=== PATIENT | female | born 1950 | race Caucasian/White ===

== ENCOUNTER 2020-09-27 11:38 | Emergency (ER) | payer OTHER ==
[~2020-09-27] VITALS: Ht 162.6 cm; Wt 65.8 kg
[~2020-09-27 11:38] MED LIST: CATAFLAM50 MG PO; MOTRIN800 MG PO; TUSSIONEX PENNKI5 ML PO; ZITHROMAX500 MG PO
[2020-09-27] MEDS ORDERED: JANUMET 50-1,01 EACH (11:59)
[2020-09-27] MEDS ORDERED: GLIPIZIDE XL2.5 MG (11:59)
[2020-09-27] MEDS ORDERED: GLIMEPIRIDE1 MG (12:00)
[2020-09-27] MEDS ORDERED: GLIMEPIRIDE4 MG (12:00)
[2020-09-27] MEDS ORDERED: NEURONTIN300 MG PO (15:01)
[2020-09-27] MEDS ORDERED: CELEBREX100 MG PO (15:01)
== END 2020-09-27 15:09 | disposition home or self-care (01) ==
LOC: ER 11:38
DX: G62.89 Other specified polyneuropathies (principal); M79.651 Pain in right thigh

== ENCOUNTER 2023-05-03 10:40 | Emergency (ER) | payer OTHER ==
[~2023-05-03] VITALS: Ht 162.6 cm; Wt 62.6 kg
[~2023-05-03 10:40] MED LIST changes: +CELEBREX100 MG PO; +GLIMEPIRIDE1 MG; +GLIMEPIRIDE4 MG; +GLIPIZIDE XL2.5 MG; +JANUMET 50-1,01 EACH; +NEURONTIN300 MG PO
[2023-05-03] MEDS ORDERED: TRULICITY1.5 MG/0.5 SQ (11:28)
[2023-05-03] MEDS ORDERED: ATORVASTATIN CA20 MG PO (11:30)
[2023-05-03] MEDS ORDERED: SYNJARDY 12.5-1 EACH PO (11:30)
== END 2023-05-03 17:41 | disposition home or self-care (01) ==
LOC: ER 10:40
DX: M79.605 Pain in left leg (principal)
CPT/HCPCS: 36415; 73560; 93971; 96372; 99284; J1885

== ENCOUNTER 2023-09-07 12:05 | Emergency (ER) | payer OTHER ==
[~2023-09-07] VITALS: Ht 162.6 cm; Wt 62.6 kg
[~2023-09-07 12:05] MED LIST changes: +ATORVASTATIN CA20 MG PO; +SYNJARDY 12.5-1 EACH PO; +TRULICITY1.5 MG/0.5 SQ
[2023-09-07] MEDS ORDERED: KETOROLAC TROMETHAMINE 30 MG VIAL IM STA (14:23)
== END 2023-09-07 16:46 | disposition home or self-care (01) ==
LOC: ER 12:05
DX: M54.6 Pain in thoracic spine (principal); Z88.8 Allergy status to other drugs, medicaments and biological substances
CPT/HCPCS: 72070; 96372; 99283; J1885